=== PATIENT | male | born 1965 | race Caucasian/White ===

== ENCOUNTER 2016-07-12 06:09 | Observation (INO) | payer MEDICARE ==
[~2016-07-12] VITALS: Ht 167.6 cm; Wt 65.9 kg
--- NOTE | ~2016-07-12 | DS ---
PATIENT'S NAME: MARCO A BOSCH [facility] AGE: 51 Y [address] ROOM: [address] [place], [place] [address] LOCATION: GPCU ADMIT DATE: 07/12/2016 Discharge Summary DISCHARGE DATE: 07/13/2016 FAMILY PHYSICIAN: Meir Gonzales MD ATTENDING PHYSICIAN: Amos Taylor PRINCIPAL DIAGNOSES: 1. DKA. 2. Type 2 diabetes, uncontrolled. 3. Esophagitis. HOSPITAL COURSE: This is a 51-year-old male, who was admitted to the hospital after he was found to be hyperglycemic with ketones in his urine during initial workup for an outpatient EGD procedure to re-evaluate esophagitis. The patient was treated with subcu insulin with long-acting and basal bolus as well as hydration therapy and his blood sugars are controlled right now. The patient's EGD shows improvement of esophagitis as well. The patient at this point is being discharged home in stable condition and following up with his primary care physician. PHYSICAL EXAMINATION: GENERAL: The patient on exam is angry and agitated, however, has normal state of health. HEART: S1, S2. Regular rate and rhythm. ABDOMEN: Soft, nontender, nondistended. EXTREMITIES: Without edema. NEUROLOGIC: Nonfocal. MEDICATIONS: Per MAY. DISCHARGE INSTRUCTIONS: I had given the patient instructions to a goal of fasting blood sugar in the morning less than 150. I have also instructed him to contact his primary care physician if fasting blood sugar consistently runs above 200 to 250 and he understands this as well. DISPOSITION: Home and follow up with primary care physician. MD KRIS COLLADO/modl /[id number] d: 07/14/1608 t: 07/16/16 1419, DISCHARGE SUMMARY
--- NOTE | ~2016-07-12 | HP ---
PATIENT'S NAME: MARCO A BOSCH [facility] AGE: 51 Y [address] ROOM: [id number] [place], [place] [address] LOCATION: GPCU ADMIT DATE: 07/12/2016 History & Physical DISCHARGE DATE: FAMILY PHYSICIAN: Meir Gonzales MD ATTENDING PHYSICIAN: ELSA LANG DATE OF SERVICE: CHIEF COMPLAINT: Hyperglycemia, therefore elective upper endoscopy was postponed. HISTORY OF PRESENT ILLNESS: This is a 51-year-old male, who was recently hospitalized here for DKA from type 1 diabetes mellitus and also was found to have acute pancreatitis and severe esophagitis based on the CT of abdomen and pelvis in May 2016. The patient was eventually discharged after he was recovered from the DKA and supportive care for the pancreatitis in the setting of DKA and was scheduled to have elective procedure for upper endoscopy to evaluate for the severe esophagitis today on July 12, 2016. The patient has type 1 diabetes, and he uses glargine 25 units every day once a day in the morning and also use insulin NovoLog sliding scale a.c. and h.s. at home. The patient was instructed to skip morning dose of subcutaneous glargine 25 units, and also, the patient was fasting and also did not use subcutaneous NovoLog sliding scale, and today during the elective procedure for the EGD, the patient was found to have a fingerstick glucose in the 543 at 8:30 a.m. Therefore, the elective procedure of the EGD was postponed for tomorrow to better control his hyperglycemia. The patient is not in DKA. He is just having hyperglycemia from skipping the insulin dose in the morning. Since the last discharge, the patient has been complaining on and off epigastric pain, which is chronic, consistent with esophagitis based on the imaging test as mentioned before. He occasionally also has belching and acid reflux symptoms, worse at night and with food intake. The patient's last colonoscopy was done 5 years ago. He was told it was normal. It was done by Dr. Figueroa according to the patient. Otherwise, the patient feels well without any other complaints. REVIEW OF SYSTEMS: As mentioned in the history of present illness. All other systems reviewed and negative except those mentioned in the history of present illness. PAST MEDICAL HISTORY: 1. Seizure disorder secondary to head injury in the past. 2. 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 He was in dialysis for 2 years, but he already recovered since 15 PATIENT'S NAME: MARCO A BOSCH [facility] AGE: 51 Y [address] ROOM: [id number] [place], [place] [address] LOCATION: GPCU ADMIT DATE: 07/12/2016 History & Physical DISCHARGE DATE: FAMILY PHYSICIAN: Meir Gonzales MD ATTENDING PHYSICIAN: ELSA LANG years ago. 3. Type 1 diabetes. 4. Hyperlipidemia. 5. History of pancreatitis with recent admission secondary to DKA from hyperglycemia. 6. Restless legs syndrome. ALLERGIES: HYDROMORPHONE, CARBAMAZEPINE, PENICILLIN, DILANTIN, TEGRETOL, IODINE, BARBITURATE. PER MEDICAL RECORDS ALSO HYDANTOIN AND TIAGABINE. HOME MEDICATIONS: Currently is being reconciled. SOCIAL HISTORY: The patient is an active cigarette smoker about 1 pack per day since he was 12 years old. He was a former alcohol drinker, but he was never abusive. He was just a social drinker. He quit about 20 years ago. He denies any illegal drug use. FAMILY HISTORY: Father from cancer, but he could not remember which type. Mother had diabetes, hypertension, and he can not remember any other medical problem. His mother at advanced age from a cause that he could not remember. PAST SURGICAL HISTORY: The patient denies any surgery in the past. PHYSICAL EXAMINATION: VITAL SIGNS: At the time of my dictation, temperature 97.9, heart rate 89, respirations 14, blood pressure 112/69, saturation 96% on room air. Pain 0/10. GENERAL APPEARANCE: Alert and oriented x3, in no acute distress. HEENT: Pupils are equally round and reactive to light. Extraocular muscles intact. Anicteric sclerae. Moist oral mucosa. Nasal turbinates are normal bilaterally. NECK: No JVD. CARDIOVASCULAR: Regular rate and rhythm. Normal S1, S2. No murmur. No rubs, no gallops. RESPIRATORY: Clear. ABDOMEN: Soft, mildly tender to palpation in the epigastric area, bowel sounds present, nondistended, no palpable mass, and no hepatosplenomegaly. EXTREMITIES: No edema in upper or lower extremities. NEUROLOGICAL: Grossly nonfocal. PATIENT'S NAME: MARCO A BOSCH [facility] AGE: 51 Y [address] ROOM: [id number] [place] [address] LOCATION: GPCU ADMIT DATE: 07/12/2016 History & Physical DISCHARGE DATE: FAMILY PHYSICIAN: Meir Gonzales MD ATTENDING PHYSICIAN: ELSA LANG SKIN: No ulcer, no rash, no cyanosis. MUSCULOSKELETAL: No joint pain. No muscle pain. LABORATORY DATA: White blood cell 7.2, hemoglobin 15.1, hematocrit 42.4, MCV 83.8, platelet 225. Glucose 292, BUN 12, creatinine 0.8, sodium 141, potassium 3.4, chloride 100, CO2 of 32, calcium 9.0. Total protein 6.5, albumin 2.8, AST 9, ALT 13, alkaline phosphatase 94, total bilirubin 0.5. GFR more than 60. A1c back on May 11, 2016, was more than 16. INR was 0.89. IMAGING STUDY: None. ASSESSMENT AND PLAN: 1. Hyperglycemia secondary to missed home insulin dose: The most likely cause of the hyperglycemia is from skipping the morning insulin dose in setting of type 1 diabetes. The patient already received 25 units of subcutaneous NovoLog at 8:52 a.m. downstairs, and recheck fingerstick glucose was 415 at 9:54 a.m. A recheck fingerstick glucose at 11:30 a.m. was 316. The plan will be to resume diabetic diet. Resume home medication dose with; I will be using the subcutaneous Levemir 25 units every morning, give one dose right now and also putting on the sliding scale with insulin aspart a.c. and h.s. low-dose in combination with insulin aspart, carb count with 2 units for every 15 g of carb intake. Once the patient becomes n.p.o. after midnight in anticipation for the EGD tomorrow, the patient will be getting q.4 hours check fingerstick with subcutaneous regular insulin; we will be using the moderate dose and titrate as necessary. Further plan depends on clinical course. The patient will be under observation, and after the EGD will be up to the GI to decide to discharge the patient or to keep the patient here depending on the finding on the upper endoscopy. Continue his home Protonix 40 mg p.o. b.i.d. 2. Regarding his seizure disorder: Continue home medication. 3. Regarding his chronic kidney disease stage 3 from the past: Kidney function today, normal creatinine and GFR more than 60. 4. Regarding his restless legs syndrome: Continue home medication. Medication list is currently being reconciled. 5. Deep venous thrombosis prophylaxis. Compression devices. Tomorrow get an EGD. After the EGD, the patient can use a heparin subcu or Lovenox. Time spent in care on the day of admission 35 minutes including chart review, interviewing the patient, addressing all the questions and concerns and concern the patient had, and going over the plan of care with the patient and nurses. PATIENT'S NAME: MARCO A BOSCH [facility] AGE: 51 Y [address] ROOM: [id number] [place] [id number] [facility] AD[facility] DATE: 07/12/2016 History & Physical DISCHARGE DATE: FAMILY PHYSICIAN: Meir Gonzales MD ATTENDING PHYSICIAN: ELSA LANG OSIEL JAIEMS MD CC/modl /[id number] D: [id number] T: [id number] HISTORY & PHYSICAL
[~2016-07-12 06:09] MED LIST: ADVIL200 MG PO; ASPIRIN (CHILDR81 MG PO; ASPIRIN LO-DOSE81 MG PO; BUMETANIDE2 MG PO; BUMEX PO; BUMEX1 MG PO; CLARITIN10 MG PO; DEPAKOTE EXTEN500 MG PO; DRISDOL 5050000 UNIT PO; GLUCOSE4 GM PO; K-TAB ER20 MEQ PO; KLONOPIN1 MG PO; LIPITOR10 MG PO; NEURONTIN100 MG PO; NEURONTIN600 MG PO; NOVOLIN-R100 UNIT/M SUB-Q; NOVOLOG FL100 UNIT/1 SUB-Q; NOVOLOG100 UNIT/M; PLAVIX75 MG PO; PROTONIX40 MG PO; REMERON45 MG PO; REQUIP1 MG PO; TOPROL XL25 MG PO; TOUJEO SOL300 UNIT/1 SUB-Q; TYLENOL/COD#31 TAB PO; ZANTAC (NON-FO150 MG PO; ZANTAC300 MG PO; ZONEGRAN100 M1 PO
[2016-07-12 12:55] LABS: HEMATOCRIT 42.4 % (37.0-53.0); HEMOGLOBIN 15.1 g/dL (12.0-17.0); MCH 29.8 pg (27.0-34.0); MCHC 35.6 gm/dL (32.0-36.5); MCV 83.8 fl (83.0-98.0); MPV 9.3 fl (9.4-12.4); RBC 5.06 M/uL (4.00-6.00); RDW-CV 12.8 % (11.9-14.6); WBC 7.2 K/uL (4.0-11.0)
[2016-07-12 13:04] LABS: INR - (THERAPEUTIC) 0.89 (0.92-1.07); PROTIME 9.3 SECONDS (9.8-11.4)
[2016-07-12 13:08] LABS: ANION GAP 12.4 (10.0-19.0); BLOOD UREA NITROGEN 12 mg/dL (6-24); CHLORIDE 100 mMol/L (96-110); CO2 32 mMol/L (22-32); CREATININE 0.8 mg/dL (0.6-1.3); ESTIMATED GFR (MDRD EQUATION) > 60; POTASSIUM 3.4 mMol/L (3.7-5.1); SODIUM 141 mMol/L (135-145)
--- NOTE | 2016-07-12 13:15 | NUR ---
Patient is 51 yo male admitted from [facility] with BS over 500. was scheduled for EGD this am and was found to have high BS. patient is aggitated as he is admitted, he states he was told to not take his meds this morning and when he got here, he was told he should have takent them. he is hungry and aggitated that he has tried to order food and the order is not in yet. this is checked and patient is assisted to order his lunch. patient initially did not want to answer any questions, and answered them very shortly, but then became more congenial. saline lock is noted in left forearm without erythema or edema at site. education is given as documented. patient denies questions at this time. allergy bracelet is on. pneumatics are on bilat calves. call light is within reach. patient in recliner, denies needs at this time. is eating his lunch. report is given to ELZA Bear.
--- NOTE | 2016-07-12 16:50 | NUR ---
PT WAS ADMITTED TO PCU FOR BLOOD SUGAR MANAGEMENT. PT CAME IN TODAY FOR HIS EGD AND HIS INITIAL BLOOD SUGAR WAS 543 THE SUGAR WAS RECHECKED RIGHT AWAY AND IT WAS FOUND TO BE 537. DR. MERYL MDA ORDERED THAT THE PT BE GIVEN 25UNITS OF NOVOLOG INSULIN SUB-Q NOW AND RECHECK THE PT'S SUGAR IN 1 HOUR. PT WAS GIVEN THE NOVOLOG SUB-Q AT 0852. PT HAS BEEN RESTING WELL IN BED. PT'S SISTER IS ON HER WAY HER FROM [facility] TO BE WITH THE PT. PT'S SUGAR WAS RECHECKED AT 0954 AND IT WAS 439 AND RECHECK RIGHT AFTER THAT WAS 415. DR. LANG ADVISED THAT THE PT'S EGD BE RESCHEDULED TO TOMORROW AND CONSULT THE HOSPITALIST FOR BLOOD SUGAR MANAGEMENT. DR MERYL MDA ALSO ORDERED TO GIVE DEPAKOTE 1,000MG X1 DOSE NOW AND METOPROLOL 25MG PO X 1 DOSE NOW. PT WAS GIVEN BOTH OF THESE MEDICATIONS AND HE TOLERATED THEM WELL. DR. LANG CAME AND TALKED TO THE PT AND HIS SISTER AND ADVISED THEM BOTH THAT HE WAS GOING TO HAVE THE HOSPITALIST COME SEE HIM AND HE WOULD BE ADMITTED TO PCU FOR BLOOD SUGAR MANAGEMENT HIS SUGARS ARE TO HIGH FOR HIM TO SAFELY BE ABLE TO GO HOME. THE PT AGREED TO THIS AND WAS OKAY WITH THE PROCEDURE BEING RESCHEDULED TO TOMORROW. REPORT WAS CALLED TO THE PT'S NURSE AT [facility] ON PCU AT 1100. ADVISED HER THAT THE HOSPITALIST WAS HERE SEEING THE PT NOW AND ONCE HE WAS DONE TALKING TO THE PT HE WOULD BE UP TO HIS ROOM 6317 VIA TRANSPORT AND WHEELCHAIR. ELZA BURNS VERBALIZED UNDERSTANDING OF THESE INSTRUCTIONS. PT WAS TRANSFERED TO PCU ROOM 6317 AT 1125.
--- NOTE | 2016-07-12 19:05 | NUR ---
Significant Event: A/O x3, cooperative with cares; patient did have one episode where became aggitated et irritated with staff. VSS, SBPs 80-110s, HRs 80-100s, on room air. No c/o pain. Blood sugar upon arrival to the floor was 316 et at supper time was 416/397; Dr. Mendez notified of both et orders recieved. GI consulted for EGD in AM. Up in room ad raquel Follow up: call retail center receptionist hospitalist with HS blood sugar; NPO after midnight; EGD in AM
--- NOTE | 2016-07-13 04:04 | NUR ---
Significant event: A/O x 3. Up in room ad raquel. Showered last night. Hs accucheck was 214 6units novolog given, Dr. Stokes called and updated per 's request. Patient Npo at Midnight for EGD in AM NS Started at midnight. 0300 accucheck was 148 which did not require any coverage. No c/o pain throughout the night VSS.
[2016-07-13 07:09] LABS: ANION GAP 9.1 (10.0-19.0); BLOOD UREA NITROGEN 12 mg/dL (6-24); CALCIUM 8.2 mg/dL (8.5-10.5); CHLORIDE 104 mMol/L (96-110); CO2 31 mMol/L (22-32); CREATININE 0.5 mg/dL (0.6-1.3); ESTIMATED GFR (MDRD EQUATION) > 60; POTASSIUM 3.1 mMol/L (3.7-5.1); SODIUM 141 mMol/L (135-145)
--- NOTE | 2016-07-13 13:33 | NUR ---
reviewed student charting and on the floor from [id number] cailin [email or web address]
--- NOTE | 2016-07-13 17:55 | NUR ---
Significant Event: A/O x3, cooperative with cares for the most part; patient did become aggitated, angry at staff et yelling at them after returning to floor from endoscopy. VSS, SBPs 90-120s, HRs 90-100s, on room air. No c/o pain. EGD today; per PACU staff it looked better that the prior study. Up in room ad raquel. Dismissal instructions given to patient et sister, verbalized understanding. Dismissed to front lobby per pedis accompanied by nurse et sister. Follow up:
== END 2016-07-13 16:45 | disposition disaster alternative care site (69) ==
LOC: GEND 06:09 → GPCU 06:09 → GEND 06:10 → GPCU 06:10 → GPOC 07:00 → GPCU 07-13 16:45 → GEND 07-13 16:45
PROVIDERS: Internal Medicine; ADMIT Internal Medicine Gastroenterology
PROC: 0DJ08ZZ Inspection of Upper Intestinal Tract, Via Natural or Artificial Opening Endoscopic (ICD-10-PCS; principal; 2016-07-13)
DX: K22.10 Ulcer of esophagus without bleeding (principal); K21.0 Gastro-esophageal reflux disease with esophagitis; E13.10 Other specified diabetes mellitus with ketoacidosis without coma; G40.909 Epilepsy, unspecified, not intractable, without status epilepticus; N18.9 Chronic kidney disease, unspecified; E78.5 Hyperlipidemia, unspecified; G25.81 Restless legs syndrome; F17.210 Nicotine dependence, cigarettes, uncomplicated; E66.9 Obesity, unspecified; Z68.23 Body mass index [BMI] 23.0-23.9, adult; Z88.0 Allergy status to penicillin; Z88.8 Allergy status to other drugs, medicaments and biological substances
CPT/HCPCS: J7030

== ENCOUNTER 2016-11-07 11:33 | Emergency (ER) | payer MEDICARE, MEDICAID ==
--- NOTE | ~2016-11-07 | ER ---
[facility]GE[facility] 51 Y [address] ROOM: [place] [address] LOCATION: ED ADMIT DATE: 11/07/2016 ER/Outpatient Report DISCHARGE DATE: 11/07/2016 FAMILY PHYSICIAN: Armando Byrne MD ATTENDING PHYSICIAN: Ildefonso Cheema Time of Arrival: 1133 hours. Time of Evaluation: 1138 hours. CHIEF COMPLAINT: Seizure. HISTORY OF PRESENT ILLNESS: The patient is a 51-year-old male who presents to the emergency department today with a chief complaint of seizure. The patient does have a long history of seizures. He has been seen here multiple times. The patient was actually checking in for an MRI of his brain. He was an assistance alert, when he started having a seizure. The patient does have the family at the bedside, reports that he has been acting normal. No fevers or chills. No nausea or vomiting. No diarrhea or constipation. No other complaints. No chest pain. No shortness of breath. PAST MEDICAL HISTORY: 1. Seizure disorder secondary to head injury in the past. 2. Chronic kidney disease secondary to glomerulonephritis. 3. Type 1 diabetes. 4. Dyslipidemia. 5. History of pancreatitis. 6. Restless legs syndrome. PAST SURGICAL HISTORY: Denies. SOCIAL HISTORY: The patient smokes a pack per day. Former alcoholic drinker, but denies ever abusive. Denies any illicit drug use. ALLERGIES: HYDROMORPHONE, CARBAMAZEPINE, PENICILLIN, DILANTIN, TEGRETOL, IODINE, BARBITURATES, HYDANTOIN, AND TIAGABINE. MEDICATIONS: Please see list. PRIMARY CARE DOCTOR: [facility]GE: 51 Y [address] ROOM: [place] [address] LOCATION: ED ADMIT DATE: 11/07/2016 ER/Outpatient Report DISCHARGE DATE: 11/07/2016 FAMILY PHYSICIAN: Armando Byrne MD ATTENDING PHYSICIAN: Ildefonso Cheema MD REVIEW OF SYSTEMS: All systems are reviewed by myself are negative with the exception of those discussed in the HPI and past medical history. PHYSICAL EXAMINATION: VITAL SIGNS: Weight 74 kg. Blood pressure 110/70, pulse 96, respiratory rate 16, temperature 96.5, and oxygen saturation 94% on room air. GENERAL: The patient is a 51-year-old male, who appears stated age. He is sleepy, but does not follow commands. HEENT: Normocephalic and atraumatic. Pupils are equal, round, and reactive to light. NECK: Supple. There is no nuchal rigidity. CARDIOVASCULAR: Regular rate and rhythm. No murmurs, rubs, or gallops. LUNGS: Clear to auscultation bilaterally. No wheezes, rales, or rhonchi. ABDOMEN: Soft, nontender, and nondistended. No rebound, rigidity, or guarding. MUSCULOSKELETAL: The patient moves all 4 extremities. SKIN: Warm and dry. NEUROLOGICAL: GCS of E4, V2, M5. Downward going toes. No clonus. LABORATORY DATA AND IMAGING STUDIES: Labs and x-rays; venous blood gas 7.36/53/53/29.9/32/3.4. CBC is normal. CMP is normal except for a glucose of 374. LFTs are normal. Beta hydroxybutyrate is normal. Cardiac enzymes are normal. Valproic acid is normal. CT scan of the brain was obtained, shows asymmetric cord, and calcification of left choroid plexus of uncertain significance. MRI of the brain was also obtained. I have discussed the results with the radiologist. It was unremarkable, stable MRI of the brain. IMPRESSION: 1. Seizure with history of seizure disorder. 2. Initial visit. EMERGENCY DEPARTMENT COURSE: The patient was brought back to the examination room. Seen and evaluated by myself. IV was established. Laboratory analysis and imaging were obtained as described above. The patient is given 2 mg of Ativan IV. The patient is observed here in the emergency department. He does return to his baseline. The sister is at bedside. She does report that he is ready to go. He does ambulate. I have discussed the results with the patient and his sister. I have answered their questions. I have asked he follows up with the primary care doctor in 2 days for re-evaluation. I have discussed return to care instructions including worsening symptoms or any other concerns to return to PATIENT'S NAME: MARCO A BOSCH [facility] AGE: 51 Y [address] ROOM: [place] [address] LOCATION: [facility] ADMIT DATE: 11/07/2016 ER/Outpatient Report DISCHARGE DATE: 11/07/2016 FAMILY PHYSICIAN: Armando Byrne MD ATTENDING PHYSICIAN: Ildefonso Cheema the emergency department as soon as possible. The patient is agreeable without further questions at this time. DISPOSITION: The patient was discharged to home in good condition. DO RADHA ALBERTO/teodora /[id number] d: 11/07/16 1845 t: 11/08/16 08, OUTPATIENT REPORT
[2016-11-07 12:08] LABS: HEMATOCRIT 38.8 % (37.0-53.0); HEMOGLOBIN 13.9 g/dL (12.0-17.0); MCH 31.6 pg (27.0-34.0); MCHC 35.8 gm/dL (32.0-36.5); MPV 8.7 fl (9.4-12.4); PLATELET COUNT 256 K/uL (150-450); RDW-CV 12.4 % (11.9-14.6); WBC 6.9 K/uL (4.0-11.0)
[2016-11-07 12:09] LABS: BICARBONATE 29.9 mmol/L (18.0-23.0); PCO2 53 mmHg (35-45); PO2 53 mmHg (80-90)
[2016-11-07 12:10] LABS: MCV 88.2 fl (83.0-98.0)
[2016-11-07 12:36] LABS: ALBUMIN 3.2 gm/dL (3.5-5.0); ALK PHOS 103 IU/L (33-138); ALT 17 IU/L (12-78); ANION GAP 11.6 (10.0-19.0); AST 9 IU/L (10-40); BLOOD UREA NITROGEN 15 mg/dL (6-24); CALCIUM 8.7 mg/dL (8.5-10.5); CHLORIDE 106 mMol/L (96-110); CO2 26 mMol/L (22-32); CPK 36 IU/L (35-332); CREATININE 0.9 mg/dL (0.6-1.3); POTASSIUM 4.6 mMol/L (3.7-5.1); SODIUM 139 mMol/L (135-145); TOTAL BILIRUBIN 0.4 mg/dL (0.0-1.5); TOTAL PROTEIN 6.7 g/dL (6.0-8.4)
[2016-11-07 12:49] LABS: ABSOLUTE NEUTROPHIL CT (ANC) 3.2 K/uL (1.4-9.0); BANDED NEUTROPHIL # 0.1 K/uL (0.0-0.1); BANDED NEUTROPHILS % 1 %; LYMPHOCYTE # 3.1 K/uL (0.8-4.0); LYMPHOCYTE % 45 %; MONOCYTE # 0.4 K/uL (0.0-1.0); SEGMENTED NEUTROPHIL # 3.1 K/uL (1.4-9.0); SEGMENTED NEUTROPHIL % 45 %
== END 2016-11-07 14:22 | disposition disaster alternative care site (69) ==
LOC: GMED 11:33
PROVIDERS: Emergency Medicine
DX: G40.909 Epilepsy, unspecified, not intractable, without status epilepticus (principal); F17.210 Nicotine dependence, cigarettes, uncomplicated; E10.22 Type 1 diabetes mellitus with diabetic chronic kidney disease; N18.9 Chronic kidney disease, unspecified; E78.5 Hyperlipidemia, unspecified; Z88.0 Allergy status to penicillin; Z88.8 Allergy status to other drugs, medicaments and biological substances; Z88.5 Allergy status to narcotic agent
CPT/HCPCS: J2060

== ENCOUNTER → 2016-11-07 | Outpatient (CLI) | payer MEDICARE, MEDICAID | END | disposition disaster alternative care site (69) | LOC: GAMB 11:27 | DX: G40.409 Other generalized epilepsy and epileptic syndromes, not intractable, without status epilepticus (principal); E10.9 Type 1 diabetes mellitus without complications; R40.20 Unspecified coma; Z79.4 Long term (current) use of insulin; Z79.82 Long term (current) use of aspirin; Z79.899 Other long term (current) drug therapy; Z88.0 Allergy status to penicillin; Z88.6 Allergy status to analgesic agent; Z88.8 Allergy status to other drugs, medicaments and biological substances | CPT/HCPCS: A0425; A0427; J2060; J7030 ==